=== PATIENT | female | born 1990 | race Caucasian/White ===

== ENCOUNTER 2020-04-29 09:41 | Emergency (ER) | payer OTHER ==
--- NOTE | 2020-04-29 10:31 | ER Document Report ---
ED General - General Chief Complaint: Headache <24 hrs old Stated Complaint: HEADACHE/DIZZINESS Time Seen by Provider: 04/29/20 10:09 Notes: HPI: Patient is a 29-year-old female who states during her overnight shift around 4 AM she had a slow development of a left posterior headache. She states she does have a history of migraines and this does feel similar. However coworkers noticed that her left eye was more dilated than her right. She denies any pain behind her eyes, double or blurry vision, nausea, vomiting, fevers, recent head trauma, neck pain, weakness or numbness of the arms or legs. No drooping of the left eyelid. Patient does work as a news internship tech overnight. She was working last night. She does not think any chemical got into her eye. ROS: See HPI All other review of systems reviewed and otherwise negative Reviewed vital signs and nursing note as charted by RN. PHYSICAL EXAM: CONSTITUTIONAL: Alert and oriented and responds appropriately to questions. Well-appearing; well-nourished HEAD: Normocephalic; atraumatic EYES: Left pupil is slightly dilated compared to the right. However both reactive. Globes are soft. No obvious retinal discoloration, hemorrhage, with full extraocular range of motion ENT: Normal nose; no rhinorrhea; no drooping of the left eyelid; moist mucous membranes; pharynx without lesions noted NECK: Supple without meningismus; non-tender; no cervical lymphadenopathy, no masses CARD: Regular rate and rhythm; no murmurs; symmetric distal pulses RESP: Normal chest excursion without splinting or tachypnea EXT: Normal ROM in all joints; non-tender to palpation; no edema SKIN: No acute lesions noted NEURO: CN 2-12 intact; 5/5 bilateral upper and lower extremity strength with sensation intact to light touch PSYCH: The patient's mood and manner are appropriate. Grooming and personal hygiene are appropriate. - Related Data Allergies/Adverse Reactions: No Known Allergies Allergy (Verified 04/29/20 09:47) Past Medical History - Social History Smoking Status: Former Smoker Family History: Reviewed & Not Pertinent Patient has homicidal ideation: No Physical Exam - Vital signs Vitals: Temp Pulse Resp BP Pulse Ox 98.1 F 99 16 142/92 H 100 04/29/20 09:52 04/29/20 09:52 04/29/20 09:52 04/29/20 09:52 04/29/20 09:52 Course - Re-evaluation Re-evalutation: 04/29/20 10:30 Given the above history and physical examination with some mildly dilated left pupil that is equal and reactive, with a slow development of a headache, I will proceed initially with a CT scan of the head. If this is unremarkable I will most likely proceed with an MRI of the brain. I will also check the patient's blood glucose levels and the basic chemistry. Given the history of migraines, slow development of pain, with the onset around 6 hours ago, I do believe s ubarachnoid hemorrhage will be able to be detected on CT scan. 04/29/20 11:43 I have called and spoken to the radiologist after the normal CT scan and explained the history and the dilated left pupil. He he has recommended an MRI of the head without contrast. He does not recommend a current MRA of the head or neck at this time. 04/29/20 14:34 MRI as recorded. No change in exam. I called and spoke to the radiologist since there was no comment about the vessels. He states he is not able to see small aneurysms. He is not the one I previously spoke to about the MRI order. We will order an MRI. I have called and spoke to the dental tech to explain. 04/29/20 16:28 Normal intraocular pressure. MRI of the brain as recorded. Patient's headache is much improved. Vital signs are stable. Patient's pupil is less dilated. Still equal and reactive. Still no focal neurological deficits. I have called the marketing lead office to help expedite follow-up. Patient will be discharged home with strict return precautions. Patient does have insurance that should be able to get to the clinic very easily. - Vital Signs Vital signs: Temp Pulse Resp BP Pulse Ox 98.1 F 89 16 121/84 100 04/29/20 09:52 04/29/20 14:15 04/29/20 14:15 04/29/20 14:15 04/29/20 14:15 - Laboratory Result Diagrams: 04/29/20 10:20 04/29/20 10:20 Laboratory results interpreted by me: 04/29/20 04/29/20 10:20 10:20 Glucose 120 H Ur Leukocyte Esterase TRACE H Discharge - Discharge Clinical Impression: Left-sided headache, Fixed dilated pupil of left eye Condition: Good Disposition: HOME, SELF-CARE Additional Instructions: Please make sure that you follow-up with the marketing lead as discussed. Please come back immediately for any worsening pain, weakness or numbness, double or blurry vision, fevers or vomiting, or any other acute problems. Referrals: LARRY FRITZ MD [ACTIVE STAFF] - Follow up as needed
[2020-04-29 10:38] LABS: ABSOLUTE EOSINOPHILS # (AUTO) 0.2 10^3/uL (0.0-0.6); ABSOLUTE LYMPHOCYTES (AUTO) 3.7 10^3/uL (0.5-4.7); ABSOLUTE MONOCYTES (AUTO) 0.5 10^3/uL (0.1-1.4); BASOPHILS % (AUTO) 0.2 % (0-2); EOSINOPHILS % (AUTO) 1.5 % (0-6); HEMATOCRIT 40.7 % (36.0-47.0); HEMOGLOBIN 14.2 g/dL (12.0-15.5); LYMPHOCYTES % (AUTO) 35.8 % (13-45); MEAN CORPUSCULAR HEMOGLOBIN 30.7 pg (27.0-33.4); MEAN CORPUSCULAR HGB CONC 34.9 g/dL (32.0-36.0); MEAN CORPUSCULAR VOLUME 88 fl (80-97); PLATELET COUNT 331 10^3/uL (150-450); RED BLOOD COUNT 4.62 10^6/uL (3.72-5.28); RED CELL DISTRIBUTION WIDTH 11.9 % (11.5-14.0); SEGMENTED NEUTROPHILS % (AUTO) 57.5 % (42-78); TOTAL CELLS COUNTED % (AUTO) 100 %; WHITE BLOOD COUNT 10.5 10^3/uL (4.0-10.5)
[2020-04-29 10:46] LABS: APPEARANCE,URINE SLIGHTLY-CLOUDY; BILIRUBIN,URINE NEGATIVE (NEGATIVE); COLOR,URINE YELLOW; GLUCOSE, URINE NEGATIVE (NEGATIVE); KETONES,URINE NEGATIVE (NEGATIVE); LEUKOCYTE ESTERASE,URINE TRACE (NEGATIVE); NITRITE,URINE NEGATIVE (NEGATIVE); PROTEIN,URINE NEGATIVE (NEGATIVE); URINE SPECIFIC GRAVITY 1.016; UROBILINOGEN,URINE NEGATIVE mg/dL (<2.0)
[2020-04-29 10:52] LABS: ALBUMIN 4.6 g/dL (3.5-5.0); ALKALINE PHOSPHATASE 66 U/L (38-126); ANION GAP 10 (5-19); ASPARTATE AMINO TRANSFERASE 25 U/L (14-36); BILIRUBIN,DIRECT 0.2 mg/dL (0.0-0.4); BILIRUBIN,TOTAL 0.4 mg/dL (0.2-1.3); BLOOD UREA NITROGEN 8 mg/dL (7-20); CALCIUM 9.3 mg/dL (8.4-10.2); CARBON DIOXIDE 28 mmol/L (22-30); CHLORIDE 101 mmol/L (98-107); GLUCOSE 120 mg/dL (75-110); POTASSIUM 4.3 mmol/L (3.6-5.0); TOTAL PROTEIN 7.9 g/dL (6.3-8.2)
--- NOTE | 2020-04-29 10:53 | RADIOLOGY REPORT (SQ) ---
EXAM DESCRIPTION: CT HEAD WITHOUT IMAGES COMPLETED DATE/TIME: 04/29/2020 10:39 am REASON FOR STUDY: 34; left sided headache; dilated pupil COMPARISON: None. TECHNIQUE: Axial images acquired through the brain without intravenous contrast. Images reviewed wi th bone, brain and subdural windows. Images stored on PACS. All CT scanners at this facility use dose modulation, iterative reconstruction, and/or weight based d osing when appropriate to reduce radiation dose to as low as reasonably achievable (ALARA). [facility]: Dose Right [facility]: CareDose [facility]: Dose Right [facility]: Teradose 4D [facility]: Practice Management e-Tools RADIATION DOSE: CT Rad equipment meets quality standard of care and radiation dose reduction techniq ues were employed. CTDIvol: 53.2 mGy. DLP: 964 mGy-cm. mGy. LIMITATIONS: None. FINDINGS: VENTRICLES: Normal size and contour. CEREBRUM: No masses. No hemorrhage. No midline shift. No evidence for acute infarction. Normal gra y/white matter differentiation. No areas of low density in the white matter. CEREBELLUM: No masses. No hemorrhage. No alteration of density. No evidence for acute infarction. EXTRAAXIAL SPACES: No fluid collections. No masses. ORBITS AND GLOBE: No intra- or extraconal masses. Normal contour of globe without masses. CALVARIUM: No fracture. PARANASAL SINUSES: No fluid or mucosal thickening. SOFT TISSUES: No mass or hematoma. OTHER: No other significant finding. IMPRESSION: NORMAL BRAIN CT WITHOUT CONTRAST. EVIDENCE OF ACUTE STROKE: NO. COMMENT: Quality ID # [id number]: Final reports with documentation of one or more dose reduction techniques (e.g., Automated exposure control, adjustment of the mA and/or kV according to patient size, use of iterative reconstruction technique) TECHNICAL DOCUMENTATION: JOB ID: [id number] 2010 [employer]- All Rights Reserved Reading location - IP/workstation name: [email or web address]
--- NOTE | 2020-04-29 13:27 | RADIOLOGY REPORT (SQ) ---
EXAM DESCRIPTION: MRI HEAD WITHOUT IMAGES COMPLETED DATE/TIME: 04/29/2020 1:13 pm REASON FOR STUDY: 34; headache with left pupil dilation COMPARISON: CT head 04/29/2020 TECHNIQUE: Multiplanar imaging includes non-contrasted T1, T2, FLAIR, and diffusion with ADC map seq uences. Images stored on PACS. LIMITATIONS: None. FINDINGS: ANATOMY: No anomalies. Normal vascular flow voids. Pituitary fossa normal. CSF SPACES: Normal in size and contour. No hemorrhage. CEREBRUM: Sulci and gyri normal in size and contour. Normal white matter signal on FLAIR imaging. No evidence of hemorrhage, mass, or extraaxial fluid collection. POSTERIOR FOSSA: No signal alteration. No hemorrhage. No edema, masses or mass effect. Internal shanae tory canals, cerebello-pontine angles, mastoids normal. DIFFUSION IMAGING: Negative for acute or sub-acute infarction. ORBITS: No masses. Globes normal. PARANASAL SINUSES: No fluid levels. Mucosa normal. OTHER: No other significant finding. IMPRESSION: NORMAL MRI OF THE BRAIN WITHOUT INTRAVENOUS GADOLINIUM CONTRAST. EVIDENCE OF ACUTE STROKE: NO. TECHNICAL DOCUMENTATION: JOB ID: [id number] 2010 [employer]- All Rights Reserved Reading location - IP/workstation name: [email or web address]
[2020-04-29 14:16] VITALS: BP 121/84
[2020-04-29] MEDS ORDERED: ACETAMINOPHEN 325 MG TABLET PO ONE (14:35)
[2020-04-29] MEDS ORDERED: KETOROLAC TROMETHAMINE INJ/PF 30 MG/1 ML SDV IV ONE (14:35)
--- NOTE | 2020-04-29 15:54 | RADIOLOGY REPORT (SQ) ---
EXAM DESCRIPTION: MRA HEAD WITHOUT IMAGES COMPLETED DATE/TIME: 04/29/2020 3:33 pm REASON FOR STUDY: 34; Dilated left pupil COMPARISON: MRI brain 04/29/2020 TECHNIQUE: Axial 3-D [id number]-[id number] acquisition imaging performed through the brain in the area of t he [place]. Images reformatted using 3-D MIPS. LIMITATIONS: None. FINDINGS: SOURCE IMAGES: The anterior cerebral, middle cerebral, and posterior cerebral arteries are normal in course and caliber. A left posterior communicating artery is present. No right posterior communicating artery is seen. There is a tiny (2 mm) saccular outpouching directed medially off the supraclinoid segment of the right internal carotid artery (series 4, image 56). The intracranial ve rtebral arteries and basilar artery are patent. No large masses. 3-D MIP: No other evidence for aneurysm. No occlusions. No significant stenosis. OTHER: No other significant finding. IMPRESSION: No aneurysm in the region of the left oculomotor nerve to explain the patient's left pup illary dilation. 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 Recom mend follow-up MRA in 1 year for stability. Otherwise, no aneurysm, dissection, or flow-limiting stenosis in the intracranial arterial system. TECHNICAL DOCUMENTATION: JOB ID: [id number] 2010 [employer] All Rights Reserved Reading location - IP/workstation name: [email or web address]
== END 2020-04-29 17:14 | disposition home or self-care (01) ==
LOC: ER 09:41
DX: H57.04 Mydriasis (principal); R51 Headache; R42 Dizziness and giddiness; Z87.891 Personal history of nicotine dependence
CPT/HCPCS: 99285; 96374; 36415; 85025; 80053; 81001; 70551; 70544; 70450; J1885